=== PATIENT | male | born 1990 | race Caucasian/White ===

== ENCOUNTER 2022-02-11 18:58 | Inpatient (IN) | payer BC ==
[~2022-02-11] VITALS: Ht 188 cm; Wt 106.3 kg
[2022-02-11] MEDS ORDERED: QUEtiapine FUMARATE 100 MG TABLET PO PRN (20:30)
[2022-02-11] MEDS ORDERED: LOPERAMIDE HCL 2 MG CAPSULE PO PRN (20:30)
[2022-02-11] MEDS ORDERED: MAG HYDROX/AL HYDROX/SIMETH ES 30 ML SUSPENSION UDCUP PO PRN (20:30)
[2022-02-11] MEDS ORDERED: PROMETHAZINE HCL 25 MG TABLET PO PRN (20:30)
[2022-02-11] MEDS ORDERED: MAGNESIUM HYDROXIDE SUSPENSION 30 ML UDCUP PO PRN (20:30)
[2022-02-11] MEDS ORDERED: TUBERCULIN, PURIFIED PROTEIN DERIVATIVE 5 TU/0.1 ML SYRINGE ID ONE (20:30)
[2022-02-11] MEDS ORDERED: GuaiFENesin/D-METHORPHAN [SUGAR-FREE] 200-20MG/10 ML SYRUP UDCUP PO PRN (20:30)
[2022-02-11] MEDS ORDERED: ACETAMINOPHEN 325 MG TABLET PO PRN (20:30)
[2022-02-11] MEDS ORDERED: HydrOXYzine PAMOATE 50 MG CAPSULE PO PRN (20:30)
[2022-02-11] MEDS: MELATONIN 5 MG TABLET PO SCH (21:00)
[2022-02-12] MEDS ORDERED: LORazepam 2 MG TABLET ONE (00:01)
[2022-02-12] MEDS ORDERED: HALOPERIDOL 5 MG TABLET ONE (00:01)
[2022-02-12] MEDS ORDERED: ZOLPIDEM TARTRATE 10 MG TABLET ONE (00:02)
[2022-02-12 00:15] VITALS: BP 136/77
[2022-02-12] MEDS: LORazepam 2 MG TABLET PO PRN ×2 (00:23→08:40)
[2022-02-12] MEDS: HALOPERIDOL 5 MG TABLET PO PRN ×2 (00:28→08:40)
[2022-02-12] MEDS ORDERED: ZOLPIDEM TARTRATE 10 MG TABLET PO PRN (00:30)
[2022-02-12 08:35] VITALS: BP 107/59
[2022-02-12] MEDS: OMEGA-3/DHA/EPA/FISH OIL 1,000 MG CAPSULE PO SCH (08:39)
[2022-02-12] MEDS: NALTREXONE HCL 50 MG TABLET PO SCH (08:39)
[2022-02-12] MEDS: FOLIC ACID 1 MG TABLET PO SCH (08:39)
[2022-02-12] MEDS: FLUoxetine HCL 20 MG CAPSULE PO SCH (08:39)
[2022-02-12] MEDS: THIAMINE 100 MG TABLET PO SCH ×2 (08:39→17:01)
[2022-02-12] MEDS: MULTIVITAMINS WITH MINERALS, THERAPEUTIC TABLET PO SCH (08:39)
[2022-02-12] MEDS ORDERED: OLANZapine 5 MG RAPDIS TABLET PO PRN (15:00)
[2022-02-12 20:16] VITALS: BP 113/67
[2022-02-12] MEDS: MELATONIN 5 MG TABLET PO SCH (20:52)
[2022-02-12] MEDS: OLANZapine 5 MG RAPDIS TABLET PO SCH (20:52)
[2022-02-13] MEDS: OMEGA-3/DHA/EPA/FISH OIL 1,000 MG CAPSULE PO SCH (08:30)
[2022-02-13] MEDS: FLUoxetine HCL 20 MG CAPSULE PO SCH (08:30)
[2022-02-13] MEDS: HALOPERIDOL 5 MG TABLET PO PRN ×2 (08:30→16:56)
[2022-02-13] MEDS: LORazepam 2 MG TABLET PO PRN ×2 (08:30→16:56)
[2022-02-13] MEDS: MULTIVITAMINS WITH MINERALS, THERAPEUTIC TABLET PO SCH (08:30)
[2022-02-13] MEDS: FOLIC ACID 1 MG TABLET PO SCH (08:30)
[2022-02-13] MEDS: THIAMINE 100 MG TABLET PO SCH ×2 (08:30→16:56)
[2022-02-13] MEDS: NALTREXONE HCL 50 MG TABLET PO SCH (08:30)
[2022-02-13 20:35] VITALS: BP 122/66
[2022-02-13] MEDS: MELATONIN 5 MG TABLET PO SCH (21:00)
[2022-02-13] MEDS: OLANZapine 5 MG RAPDIS TABLET PO SCH (21:00)
[2022-02-14 07:31] LABS: BASOPHILS % (AUTO) 0.6 % (0.0-2.0); EOSINOPHILS % (AUTO) 1.3 % (1.0-6.0); HEMOGLOBIN 16.4 g/dL (13.5-17.5); LYMPHOCYTES # (AUTO) 4.5 K/uL (1.0-4.8); LYMPHOCYTES % (AUTO) 36.4 % (22.0-44.0); MEAN CORPUSCULAR HEMOGLOBIN 30.4 pg (26.0-34.0); MEAN CORPUSCULAR HGB CONC 33.5 G/dL (31.0-37.0); MEAN CORPUSCULAR VOLUME 91 fL (80-100); MONOCYTES # (AUTO) 1.2 K/uL (0.1-1.0); MONOCYTES % (AUTO) 9.4 % (2.0-9.0); NEUTROPHILS # (AUTO) 6.4 K/uL (1.8-7.7); NEUTROPHILS % (AUTO) 52.3 % (40.0-70.0); PLATELET COUNT (AUTO) 239 K/uL (150-450); RED CELL DISTRIBUTION WIDTH 13.2 % (11.5-14.5)
[2022-02-14 07:59] LABS: HEMOGLOBIN A1C 5.2 % (3.8-5.6)
[2022-02-14 08:03] LABS: ALANINE AMINOTRANSFERASE 27 U/L (12-78); ALBUMIN 4.2 g/dL (3.4-5.0); ALKALINE PHOSPHATASE 63 U/L (46-116); ANION GAP 9 mmol/L (8-16); ASPARTATE AMINOTRANSFERASE 17 U/L (15-37); BILIRUBIN,TOTAL 0.8 mg/dL (0.1-1.0); CALCIUM, TOTAL 9.3 mg/dL (8.8-10.5); CARBON DIOXIDE 26 mmol/L (22-29); CHLORIDE 101 mmol/L (98-107); CHOL/HDL RATIO 5.7 (4.2-7.3); CHOLESTEROL 227 mg/dL (131-200); CREATININE 0.98 mg/dL (0.60-1.30); GLUCOSE,RANDOM 88 mg/dL (70-110); HDL CHOLESTEROL 40 mg/dL (40-60); LDL CHOL (CALC.) 168 mg/dL (0-130); POTASSIUM 3.7 mmol/L (3.5-5.1); SODIUM SERUM 136 mmol/L (136-145); THYROID STIMULATING HORMONE 0.64 uIU/mL (0.36-3.74); TOTAL PROTEIN, SERUM 8.2 g/dL (6.4-8.2); TRIGLYCERIDES 96 mg/dL (15-150); UREA NITROGEN, BLOOD 16 mg/dL (7-18)
[2022-02-14 08:05] LABS: GLOMERULAR FILTR. RATE CALC > 60 mL/min (>60)
[2022-02-14] MEDS: OMEGA-3/DHA/EPA/FISH OIL 1,000 MG CAPSULE PO SCH (08:23)
[2022-02-14] MEDS: THIAMINE 100 MG TABLET PO SCH ×2 (08:23→17:07)
[2022-02-14] MEDS: MULTIVITAMINS WITH MINERALS, THERAPEUTIC TABLET PO SCH (08:23)
[2022-02-14] MEDS: FLUoxetine HCL 20 MG CAPSULE PO SCH (08:23)
[2022-02-14] MEDS: LORazepam 2 MG TABLET PO PRN ×2 (08:23→19:08)
[2022-02-14] MEDS: HALOPERIDOL 5 MG TABLET PO PRN (08:23)
[2022-02-14] MEDS: NALTREXONE HCL 50 MG TABLET PO SCH (08:23)
[2022-02-14] MEDS: FOLIC ACID 1 MG TABLET PO SCH (08:23)
[2022-02-14 08:36] VITALS: BP 133/78
[2022-02-14] MEDS ORDERED: PROZ20 PO (16:16)
[2022-02-14] MEDS ORDERED: NALT50TA PO (16:16)
[2022-02-14] MEDS ORDERED: MELA5TAB40 PO (16:16)
[2022-02-14] MEDS ORDERED: OLAN10TA26 PO (16:16)
[2022-02-14] MEDS ORDERED: OMEG-135 PO (16:16)
[2022-02-14] MEDS: MELATONIN 5 MG TABLET PO SCH (20:12)
[2022-02-14] MEDS ORDERED: LOPERAMIDE HCL 2 MG CAPSULE PO PRN (20:30)
[2022-02-14 20:46] VITALS: BP 114/74
[2022-02-14] MEDS ORDERED: OLANZapine 10 MG RAPDIS TABLET PO SCH (21:00)
[2022-02-15 08:25] VITALS: BP 125/72
[2022-02-15] MEDS: THIAMINE 100 MG TABLET PO SCH (08:33)
[2022-02-15] MEDS: NALTREXONE HCL 50 MG TABLET PO SCH (08:33)
[2022-02-15] MEDS: FLUoxetine HCL 20 MG CAPSULE PO SCH (08:33)
[2022-02-15] MEDS: FOLIC ACID 1 MG TABLET PO SCH (08:39)
[2022-02-15] MEDS: OMEGA-3/DHA/EPA/FISH OIL 1,000 MG CAPSULE PO SCH (08:39)
[2022-02-15] MEDS: MULTIVITAMINS WITH MINERALS, THERAPEUTIC TABLET PO SCH (08:39)
== END 2022-02-15 11:41 | disposition home or self-care (01) | DRG 885 ==
LOC: B3A 02-12 00:02
PROVIDERS: ADMIT Psychiatry & Neurology Psychiatry; ATTEND Psychiatry & Neurology Psychiatry
DX: F25.9 Schizoaffective disorder, unspecified (principal); Z20.822 Contact with and (suspected) exposure to COVID-19; F12.90 Cannabis use, unspecified, uncomplicated; F17.200 Nicotine dependence, unspecified, uncomplicated; Z55.9 Problems related to education and literacy, unspecified; Z59.9 Problem related to housing and economic circumstances, unspecified; Z63.9 Problem related to primary support group, unspecified; Z65.3 Problems related to other legal circumstances; Z91.19 Patient's noncompliance with other medical treatment and regimen
CPT/HCPCS: 80053; 80061; 83036; 84439; 84443; 85025; 86592; Q9967